=== PATIENT | male | born 1980 ===

== ENCOUNTER 2016-10-23 22:34 | Emergency (ER) | payer MEDICAID ==
[~2016-10-23] VITALS: Ht 172.7 cm; Wt 89.0 kg
[2016-10-23 22:40] VITALS: Ht 172.7 cm; Wt 89.0 kg
[2016-10-23] MEDS ORDERED: KETOROLAC 30 MG INJ IM STA (23:16)
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
--- NOTE | 2016-10-24 01:18 | RADRPT ---
PROCEDURE: XR Elbow. CLINICAL INDICATION: Trauma TECHNIQUE: AP, lateral and oblique views of the left elbow were performed. COMPARISON: There are no similar studies submitted for comparison. FINDINGS: There is normal bone mineralization.There is no acute fracture or dislocation.No osseous lesion is i dentified. There is no joint effusion. IMPRESSION: No acute fracture or dislocation. RPTAT: HIKT .Adair Randall MD, MD Date Time Electronically viewed and signed by .Adair Randall MD, MD on 10/24/2016 01:18 .T/
--- NOTE | 2016-10-24 01:18 | RADRPT ---
PROCEDURE: XR shoulder. CLINICAL INDICATION: Trauma. TECHNIQUE: Three views of the left shoulder were obtained. COMPARISON: There are no similar studies submitted for comparison. FINDINGS: There is no acute fracture or dislocation.No destructive osseous lesion is identified.The acromiocla vicular joint is intact. The visualized portions of the chest are within normal limits. IMPRESSION: No acute fracture or dislocation. RPTAT: HIKT .Adair Randall MD, MD Date Time Electronically viewed and signed by .Adair Randall MD, MD on 10/24/2016 01:17 .T/
--- NOTE | 2016-10-24 01:19 | RADRPT ---
PROCEDURE: XR Finger. CLINICAL INDICATION: Pain. TECHNIQUE: Three views of the right thumb. COMPARISON: None available. FINDINGS: No fracture or dislocation is identified. The joint spaces are preserved. There is no significant soft tissue swelling. No radiopaque foreign body is identified. IMPRESSION: 1. No fracture or dislocation of the right thumb. 2. No radiopaque foreign body. RPTAT: HTAR .Moshe Collins MD, MD Date Time Electronically viewed and signed by .Moshe Collins MD, on 10/24/2016 01:19 .R/
--- NOTE | 2016-10-24 01:19 | RADRPT ---
PROCEDURE: XR forearm. CLINICAL INDICATION: Trauma TECHNIQUE: AP and lateral views of the left forearm were performed. COMPARISON: There are no similar studies submitted for comparison. FINDINGS: There is normal bone mineralization.There is no acute fracture or dislocation.No osseous lesion is i dentified. IMPRESSION: No acute fracture or dislocation. RPTAT: HIKT .Adair Randall MD, MD Date Time Electronically viewed and signed by .Adair Randall MD, MD on 10/24/2016 01:19 .T/
--- NOTE | 2016-10-24 01:20 | RADRPT ---
PROCEDURE: XR Wrist. CLINICAL INDICATION: Pain. TECHNIQUE: Three views of the left wrist. COMPARISON: None available. FINDINGS: No fracture or dislocation is identified. The joint spaces are preserved. There is no significant soft tissue swelling. IMPRESSION: 1. No fracture or dislocation of the left wrist. RPTAT: HTAR .Moshe Collins MD, Date Time Electronically viewed and signed by .Moshe Collins MD, on 10/24/2016 01:20 .R/
[2016-10-24] MEDS ORDERED: IBUP400T22 PO (01:34)
== END 2016-10-24 02:42 | disposition home or self-care (01) ==
LOC: FTE 22:34
DX: S49.92XA Unspecified injury of left shoulder and upper arm, initial encounter (principal); V49.40XA Driver injured in collision with unspecified motor vehicles in traffic accident, initial encounter
CPT/HCPCS: 73030; 73080; 73090; 73110; 73140; 96372; J1885; Z7502